=== PATIENT | male | born 1945 | race Hispanic/Latino ===

== ENCOUNTER 2020-07-26 06:41 | Inpatient (IN) | payer MEDICARE ==
[2020-07-26] VITALS (7 sets, daily range): BP systolic 127–195; BP diastolic 48–79
[~2020-07-26] VITALS: Ht 165.1 cm; Wt 66.0 kg
--- NOTE | 2020-07-26 06:50 | NUR ---
PATIENT TO ROOM VIA WHEELCHAIR FOR BEDSIDE TRIAGE.
[2020-07-26] MEDS ORDERED: FINASTERIDE5 MG PO (07:26)
[2020-07-26] MEDS ORDERED: TAMSULOSIN HCL0.4 MG PO (07:26)
[2020-07-26] MEDS ORDERED: OMEPRAZOLE20 MG PO (07:26)
[2020-07-26] MEDS ORDERED: METFORMIN500 M2 PO (07:27)
[2020-07-26 07:58] LABS: IMMATURE GRANULOCYTES 1.2 % (0.0-5.0); MEAN CELL VOLUME 84.7 fL CALC (80.0-100.0); MEAN CORPUSCULAR HGB CONC 34.2 g/dL CAL (32.0-36.0); NEUT# 1.57 thou/uL (1.82-7.42); RED BLOOD COUNT 3.66 mill/uL (4.70-6.10)
[2020-07-26 07:59] LABS: HEMOGLOBIN 10.6 g/dl (14.0-18.0)
[2020-07-26 08:04] LABS: ALBUMIN 3.6 g/dL (3.2-5.0); AMYLASE 49 u/l (30-110); ANION GAP 11 (6-22 (CALC)); BUN 15 mg/dL (8-23); BUN/CREATININE RATIO 17 (12-20 (CALC)); CARBON DIOXIDE 24 mmol/l (22-30); CHLORIDE 105 mmol/l (95-108); CREATININE 0.9 mg/dL (0.7-1.3); ETHYL ALCOHOL 0 mg/dl (0-30); GFR > 60 ML/MIN (>=60 (CALC)); GFR FOR AFR.AMER. > 60 ML/MIN (>=60 (CALC)); LIPASE 24 u/l (23-300); POTASSIUM 4.3 mmol/l (3.5-5.1); SGOT/AST 19 u/l (19-48); SODIUM 135 mmol/l (137-146); TOTAL PROTEIN 7.1 g/dL (6.3-8.2)
[2020-07-26 08:11] LABS: ACT PARTIAL THROMBO TIME 30.6 SECONDS (20.0-32.5)
[2020-07-26 08:12] LABS: ALKALINE PHOSPHATASE 158 u/l (38-126); BILIRUBIN, TOTAL 0.2 mg/dL (0.0-1.4)
--- NOTE | 2020-07-26 08:15 | NUR ---
PT SITTING UPRIGHT IN BED. REPORTS PAIN SOMEWHAT IMPROVED. AT BEDSIDE. VITALS STABLE ON MONITOR. CALL LIGHT WITHIN REACH.
--- NOTE | 2020-07-26 09:39 | NUR ---
IV MEDS INFUSING WITHOUT DIFFCULTY.
[2020-07-26 09:43] LABS: URINE BILIRUBIN - DIPSTICK NEGATIVE (NEGATIVE); URINE BLOOD DIPSTICK MODERATE (NEGATIVE); URINE COLOR YELLOW; URINE GLUCOSE - DIPSTICK 100 mg/dL (NEGATIVE); URINE KETONE NEGATIVE (NEGATIVE); URINE LEUK ESTERASE NEGATIVE (NEGATIVE); URINE PH 6.5 (4.5-8.0); URINE PROTEIN - DIPSTICK 100 mg/dL (NEG-TRACE); URINE UROBILINOGEN - DIPSTICK 0.2 E.U./dL (0.2)
[2020-07-26 09:45] LABS: URINE NITRITE - DIPSTICK NEGATIVE (Negative)
--- NOTE | 2020-07-26 09:55 | NUR ---
REPORT GIVEN TO AJY HARVEY.
[2020-07-26 09:57] LABS: URINE WBC 0-2 WBC/hpf (0-5)
--- NOTE | 2020-07-26 10:00 | NUR ---
Recieved for care. at bedside. AWAITING RESULTS. ERNESTO JETER AVAILABLE. NO DITRESS AT THIS TIME.
--- NOTE | 2020-07-26 10:43 | NUR ---
lab aware of need for biofire for surgery. Swab done earlier and will be resulted.
--- NOTE | 2020-07-26 12:16 | NUR ---
report to OR staff in SBAR format. Patient transported to surgery. Stable, IV infusing well.
[2020-07-26 15:38] LABS: HEMATOCRIT 27.3 % (39.0-50.0); HEMOGLOBIN 9.2 g/dl (14.0-18.0); MEAN CELL VOLUME 85.6 fL CALC (80.0-100.0); MEAN CORPUSCULAR HGB 28.8 pG CALC (26.0-32.0); MEAN CORPUSCULAR HGB CONC 33.7 g/dL CAL (32.0-36.0); RED BLOOD COUNT 3.19 mill/uL (4.70-6.10)
--- NOTE | 2020-07-26 16:40 | NUR ---
PATIENT ARRIVED FROM OR. PATIENT CONFUSED. VITALS ARE STABLE
--- NOTE | 2020-07-26 17:34 | NUR ---
CASTORENA PLACED IN PATIENT. PATIENT COMPLAINS OF PAIN FROM NOT URINATING. dR Whelan CALLED
--- NOTE | 2020-07-26 19:53 | NUR ---
PT RESTING IN BED, NO SIGNS OF DISTRESS NOTED, RESP EVEN AND UNLABORED. PT ALERT AND ORIENTED X3, DISCUSSED POC, VERBALIZED UNDERSTANDING. 02 3L NC, PT BKA BILAT, ABD DRESSING NOTED, JACOBO X1, NOTED BLOOD ABOVE JACOBO INSERTION SITE, REINFORCED DRESSING WITH ABD PAD AND TAPE, PT TOLERATED WELL. PT MEDICATED AT THIS TIME. ASSESSMENT COMPLETED, CALL LIGHT IN REACH,CONTINUE TO MONITOR.
--- NOTE | 2020-07-27 00:42 | NUR ---
PT RESTING IN BED, NO SIGNS OF DISTRESS NOTED, RESP EVEN AND UNLABORED. PT VOICES NEEDS OR COMPLAINTS AT THIS TIME, MEDICATED PER MAR, CALL LIGHT IN REACH,CONTINUE TO MONITOR.
--- NOTE | 2020-07-27 03:19 | NUR ---
PT CALLED C/O NAUSEA, MEDICATED PER OCT. CALL LIGHT IN REACH,CONTINUE TO MONITOR.
[2020-07-27 03:22] VITALS: BP 139/63
--- NOTE | 2020-07-27 05:55 | NUR ---
PT HAD IV DISLODGED, CATHETER INTACT. NEW IV TO LFA #20 PT TOLERATED WELL. PT STILL C/O NAUSEA. UNABLE TO GIVE ZOFRAN AT THIS TIME, BASIN PROVIDED, CALL LIGHT IN REACH,CONTINUE TO MONITOR.
[2020-07-27 08:32] VITALS: BP 145/59
--- NOTE | 2020-07-27 08:35 | NUR ---
REPORT WAS RECEIVED FROM DAREN. ASSESSMENT DONE. PATIENT IS A&O X3. PATIENT IS SITTING IN THE SIDE OF THE BED. PATIENT DENIES PAIN AT THIS TIME. PATIENT STATED HE HAS NAUSEA. MEDICATED PATIENT WITH ZOFRAN. IVF INFUSING WELL. PATIENT LUNGS SOUND/DIMINISHED. 02 AT 3L VIA NC. ABD DRESSING IN PLACE WITH OLD BLOODY DRAINAGE NOTED. JACOBO IN PLACE WITH BLOODY DRAINAGE NOTED. PT STATED HE WANTS TO GO HOME. NOTIFIED PATIENT MUST WAIT FOR MD TO COME. PT VERBALIZED UNDERSTANDING. PT DENIES ANY OTHER NEEDS . CALL LIGHT IN REACH. COVID PRECAUTIONS IN PLACE.
--- NOTE | 2020-07-27 11:49 | NUR ---
PATIENT IS SITTING IN THE SIDE OF THE BED. PATEITN PAIN ABD 4/10. MEDICATED PATIENT WITH TORADOL. CASTORENA IS PATIENT WITH YELLOW URINE. EDUCATED PATIENT ON HOW TO USE THE INCENTIVE SPIROMETER AND PATIENT GOES UP TO 1000. ASSISTED PT TO CALL DAUGHTER. PT DENIES ANY OTHER NEEDS AT THIS TIME. CALL LIGHT IN REACH.
--- NOTE | 2020-07-27 15:00 | NUR ---
MEDICATED PATIENT WITH OXYCODONE FOR ABD PAIN 06/10. MODERATED BLOODY DRAINAGE NOTED. CHANGE PATIENT ABD DRESSING. PATIENT DENIES ANY OTHER NEEDS AT THIS TIME. CALL LIGHT IN REACH.
--- NOTE | 2020-07-27 15:59 | NUR ---
PATIENT USING THE BSC. PATIENT TRYING TO HAVE A BM. PATIENT TRYING TO PULL CASTORENA OUT AND PULLED THE IV LINE. REORIENT PATIENT. ABLE TO FLUSH IV SITE WELL. ASSISTED PT BACK IN BED. NO BM AT THIS TIME. CALL LIGHT IN REACH.
[2020-07-27 16:30] VITALS: BP 126/68
[2020-07-27 19:15] VITALS: BP 121/47
--- NOTE | 2020-07-27 19:36 | NUR ---
RECEIVED REPORT FROM NURSE ELDRIDGE PATIENT CURRENTLY SITTING IN BED, WATCHING TV, POX AT 99% ON RA, NO SOB NOTED AT THIS TIME, CALL LIGHT AT REACH.-
--- NOTE | 2020-07-27 20:30 | NUR ---
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
--- NOTE | 2020-07-28 | NUR ---
PATIENT APPEARS TO BE SLEEPING WITH EYES CLOSED, EASY TO AROUSE DUE ABX GIVEN CALL LIGHT AT REACH.
--- NOTE | 2020-07-28 02:50 | NUR ---
PATIENT CONFUSED, PATIENT REDIRECTED, AND EDUCATED WHERE HE IS WHAT IS HE HERE FOR, PATEINT C/O NAUSEA WILL ,MEDICATE.
[2020-07-28 03:30] VITALS: BP 130/74
--- NOTE | 2020-07-28 04:41 | NUR ---
PATIENT CURRENTLY SITTING IN BED, BREATHING UNLBAORED, CALL LIGHT AT REACH.
[2020-07-28 05:28] LABS: ALKALINE PHOSPHATASE 104 u/l (38-126); ANION GAP 11 (6-22 (CALC)); BUN 12 mg/dL (8-23); BUN/CREATININE RATIO 13 (12-20 (CALC)); CARBON DIOXIDE 21 mmol/l (22-30); CHLORIDE 107 mmol/l (95-108); GFR > 60 ML/MIN (>=60 (CALC)); GFR FOR AFR.AMER. > 60 ML/MIN (>=60 (CALC)); POTASSIUM 3.5 mmol/l (3.5-5.1); SODIUM 136 mmol/l (137-146)
[2020-07-28 05:31] LABS: ALBUMIN 2.8 g/dL (3.2-5.0); BILIRUBIN, TOTAL 0.3 mg/dL (0.0-1.4); SGOT/AST 41 u/l (19-48); TOTAL PROTEIN 5.4 g/dL (6.3-8.2)
[2020-07-28 07:45] VITALS: BP 143/68
--- NOTE | 2020-07-28 07:45 | NUR ---
ASSESSMENT IS COMPLETED: IV SITE IS FREE FROM REDNESS OR EDEMA. HR IS REG,PULSES ARE STRONG ON RADIAL. ABD IS SOFT WTIH HYPO BS. DRESSING IS CDI. CASTORENA DRAINING YELLOW URINE. JACOBO DRAIN HAS SOME SERO DRAINAGE NOTED. CONTINUE TO OSBERVE AND MONITOR.
--- NOTE | 2020-07-28 08:26 | NUR ---
ATTEMPTED TO CALL DAUGHTER BACK AND NOT AVAILABLE AT THIS TIME.
--- NOTE | 2020-07-28 09:06 | NUR ---
PT WANTIGN TO GO HOME. SPEAKING WITH THE FAMILY. EXPLAINEING WAITING FIR THE DR ABOUT SHOWER AND HOME AND CASTORENA WANTING IT OFF,
--- NOTE | 2020-07-28 09:15 | NUR ---
PT C/O NAUSEA GAVE ZOFRAN
[2020-07-28 11:00] VITALS: BP 163/66
[2020-07-28] MEDS ORDERED: PERCOCET 5/325M1 TAB PO (11:28)
[2020-07-28] MEDS ORDERED: AUGMENTIN500TAB PO (11:28)
--- NOTE | 2020-07-28 11:50 | NUR ---
DISCONTINUED CASTORENA AND JACOBO DRAIN REMOVED DRESSING ON ABD. HAD SOME DRAINAGE NOTED FROM THE JACOBO SITE. SHOBHA ARE INTACT WITH BRUISING NOTED. AROUND THE SITES. NO DRAINAGE FROM THE SITES. PT TOLERATED WELL. CONTINUE TO OBSERVE AND MONITOR.
--- NOTE | 2020-07-28 12:00 | NUR ---
PT IS RELAXING IN BED WITH NO DISTRESS NOTED. IV SITE IS FREE FROM REDNESS OR EDEMA.
--- NOTE | 2020-07-28 12:30 | NUR ---
SPOKE WITH PT'S DAUGHTER RE: DISCHARGE , PT MUST URINATE BEFORE D\C ALSO ABT IS INFUSING. WILL CALL FAMILY WITH DISCHARGE INSTRUCTIONS.
--- NOTE | 2020-07-28 16:00 | NUR ---
PT IS RECEIVING DISCHARGE INSTRUCTIONS WERE GIVEN TO DAUGHTER OVER THE PHONE. 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 IV SITE DISCONTINUE D CATHETER INTACT. NO REDNESS OR EDEMA. ASSISTED WITH DRESSING HAD A HARD TIME FOR THE PROSTETIC BOOTS TO BE PLACED. LEFT SIDE IS NOT WORKING PROPERLY. CONTINUE TO OSBERVE AND MONITOR.
--- NOTE | 2020-07-28 16:41 | NUR ---
IV SITE DISCONTINEUD CATHETER INTAACT. NO REDNESS OR EDEMA. FAMILY HAS BEEN NOTIFIED OF DISCHARGE AND THE SCRIPTS.
--- NOTE | 2020-07-28 16:46 | NUR ---
HARD SCRIPT FOUND WITH DR SALEH. FAMILY INFORMED WILL COME BACK FOR IT.
--- NOTE | 2020-07-28 17:02 | NUR ---
Discharge instructions given. Patient verbalizes understanding of same. Discharged in stable condition via Wheelchair to Home with family. All belongings sent with pt.
--- NOTE | 2020-07-28 17:10 | NUR ---
GAVE FAMILY THE SCRIPT FOR PAIN MEDICAION. REINFORMED OF THE SHOWER AND PATTING DRY OF THE SHOBHA SENT DRESSING FOR PROTECTION TO KEEP SHOBHA FROM CATCHING ON THE CLOTHES. ALSO REINFORMED RE: MEALS LIQUIDS CAN ADVANCE WHEN HE FEELS UP TO IT. VERBALIZED UNDERSTANDING.
== END 2020-07-28 16:35 | disposition home or self-care (01) | DRG 414 ==
LOC: ED 06:41 → ED-I 10:25 → ED 10:39 → ORM 10:40 → MS2 16:15
PROVIDERS: ADMIT Surgery; ATTEND Surgery
PROC: 0FT40ZZ Resection of Gallbladder, Open Approach (ICD-10-PCS; principal; 2020-07-26)
PROC: 0FJ44ZZ Inspection of Gallbladder, Percutaneous Endoscopic Approach (ICD-10-PCS; 2020-07-26)
PROC: 04Q30ZZ Repair Hepatic Artery, Open Approach (ICD-10-PCS; 2020-07-26)
DX: K80.00 Calculus of gallbladder with acute cholecystitis without obstruction (principal); U07.1 COVID-19; I97.52 Accidental puncture and laceration of a circulatory system organ or structure during other procedure; K82.A1 Gangrene of gallbladder in cholecystitis; Y83.8 Other surgical procedures as the cause of abnormal reaction of the patient, or of later complication, without mention of misadventure at the time of the procedure; E11.9 Type 2 diabetes mellitus without complications; E78.5 Hyperlipidemia, unspecified; Z79.84 Long term (current) use of oral hypoglycemic drugs; Z79.899 Other long term (current) drug therapy; Z89.512 Acquired absence of left leg below knee; Z89.511 Acquired absence of right leg below knee
CPT/HCPCS: J1650; J2710; Q9967